=== PATIENT | female | born 1985 | race Caucasian/White ===

== ENCOUNTER 2019-12-08 05:25 | Inpatient (IN) | payer MEDICAID ==
[2019-12-07 14:05] LABS: BASOPHILS % (AUTO) 0.2 % (0.0-2.0); EOSINOPHILS # (AUTO) 0.1 K/uL (0-0.4); EOSINOPHILS % (AUTO) 0.7 % (0.0-4.0); HEMATOCRIT 38.4 % (36-48); HEMOGLOBIN 12.5 g/dL (12.0-16.0); LYMPHOCYTES # (AUTO) 1.8 K/uL (2.5-16.5); LYMPHOCYTES % (AUTO) 17.4 % (20.5-51.1); MEAN CORPUSCULAR HEMOGLOBIN 28 pg (27-31); MEAN CORPUSCULAR HGB CONC 33 g/dL (33-37); MEAN CORPUSCULAR VOLUME 85.3 fL (80-94); MONOCYTES # (AUTO) 0.9 K/uL (0.8-1.0); MONOCYTES % (AUTO) 8.4 % (1.7-9.3); NEUTROPHILS # (AUTO) 7.6 K/uL (1.8-7.7); NEUTROPHILS % (AUTO) 73.3 % (42.2-75.2); PLATELET COUNT (AUTO) 186 K/uL (140-450); RED CELL DISTRIBUTION WIDTH 15.7 % (11.6-13.7); WHITE BLOOD COUNT (AUTO) 10.4 K/uL (4.8-10.8)
[~2019-12-08] VITALS: Ht 167.6 cm; Wt 90.7 kg
[2019-12-08] MEDS ORDERED: PREN-380 PO (05:58)
[2019-12-08] MEDS ORDERED: LACTATED RINGERS 1,000 ML IV SCH (05:58)
[2019-12-08] MEDS ORDERED: CITRIC ACID/SODIUM CITRATE 30 ML UDC PO ONE (06:00)
[2019-12-08] MEDS ORDERED: ceFAZolin 1,000 MG VIAL ONE (06:47)
[2019-12-08 07:07] LABS: HEPATITIS B SURFACE ANTIGEN Negative (Negative)
[2019-12-08] MEDS ORDERED: MORPHINE SULFATE 2 MG/ML SYR ONE (07:15)
[2019-12-08] MEDS ORDERED: OXYTOCIN 10 UNITS/ML VIAL ONE (07:51)
[2019-12-08] MEDS ORDERED: NALOXONE 0.4 MG/ML VIAL IVP PRN ×3 (08:05)
[2019-12-08] MEDS ORDERED: diphenhydrAMINE 50 MG/ML VIAL IVP PRN ×2 (08:05)
[2019-12-08] MEDS ORDERED: ONDANSETRON 4 MG/2 ML VIAL IVP PRN ×2 (08:05)
[2019-12-08] MEDS ORDERED: NALBUPHINE 10 MG/ML AMP IVP PRN (08:05)
[2019-12-08] MEDS ORDERED: HYDROmorphone 1 MG/ML AMP IVP PRN (08:05)
[2019-12-08] MEDS ORDERED: MEPERIDINE 25 MG/ML SYR IVP PRN (08:05)
[2019-12-08] MEDS ORDERED: OXYTOCIN 20 UNITS/LR PREMIX 1,000 ML IV ONE (08:09)
[2019-12-08] MEDS ORDERED: diphenhydrAMINE 50 MG/ML VIAL ONE (08:09)
[2019-12-08] MEDS ORDERED: OXYTOCIN 20 UNITS in DEXT 5% / LACT RING 1,000 ML IV SCH (08:17)
[2019-12-08] MEDS ORDERED: METHYLERGONOVINE 0.2 MG/ML AMP IM PRN (08:20)
[2019-12-08] MEDS ORDERED: oxyCODONE/APAP 5/325 MG 1 TAB TAB PO PRN (08:20)
[2019-12-08] MEDS ORDERED: TEMAZEPAM 15 MG CAP PO PRN (08:20)
--- NOTE | 2019-12-08 08:23 | NUR ---
PATIENT HAS BEEN SCREENED AND CATEGORIZED LOW NUTRITION RISK. PATIENT WILL BE SEEN WITHIN 7 DAYS OF ADMISSION. 12/14/[address]
[2019-12-08] MEDS: OXYTOCIN 20 UNITS in LACTATED RINGERS 1,000 ML IV SCH ×3 (08:47→18:12)
[2019-12-08 10:42] LABS: APPEARANCE,URINE CLOUDY (CLEAR); BILIRUBIN,URINE NEGATIVE (NEGATIVE); BLOOD, URINE NEGATIVE (NEGATIVE); COLOR,URINE YELLOW (YELLOW); LEUKOCYTE ESTERASE ,URINE 3+ (NEGATIVE); NITRITE, URINE POSITIVE (NEGATIVE); UGLUCOSE NEGATIVE (NEGATIVE)
[2019-12-08 10:56] LABS: RBC,URINE 0-5 /HPF (0-5)
[2019-12-08 10:57] LABS: YEAST,URINE Few /HPF (None Seen)
[2019-12-08] MEDS: KETOROLAC 30 MG/ML VIAL IM/IVP SCH ×2 (12:11→18:11)
[2019-12-08] MEDS: DOCUSATE SOD/SENNA 50/8.6 MG 1 TAB PO SCH (21:00)
[2019-12-08] MEDS: SENNA 8.6 MG TAB PO SCH (21:00)
[2019-12-09] MEDS: KETOROLAC 30 MG/ML VIAL IM/IVP SCH (00:15)
[2019-12-09] MEDS ORDERED: OXYTOCIN 20 UNITS/LR PREMIX 1,000 ML IV ONE (01:12)
[2019-12-09] MEDS: OXYTOCIN 20 UNITS in LACTATED RINGERS 1,000 ML IV SCH (02:05)
[2019-12-09 06:06] LABS: BASOPHILS % (AUTO) 0.2 % (0.0-2.0); EOSINOPHILS # (AUTO) 0.1 K/uL (0-0.4); EOSINOPHILS % (AUTO) 0.6 % (0.0-4.0); HEMATOCRIT 31.9 % (36-48); HEMOGLOBIN 10.3 g/dL (12.0-16.0); LYMPHOCYTES # (AUTO) 1.6 K/uL (2.5-16.5); LYMPHOCYTES % (AUTO) 13.1 % (20.5-51.1); MEAN CORPUSCULAR HEMOGLOBIN 28 pg (27-31); MEAN CORPUSCULAR HGB CONC 32 g/dL (33-37); MEAN CORPUSCULAR VOLUME 85.7 fL (80-94); MONOCYTES # (AUTO) 0.9 K/uL (0.8-1.0); MONOCYTES % (AUTO) 7.2 % (1.7-9.3); NEUTROPHILS # (AUTO) 9.5 K/uL (1.8-7.7); NEUTROPHILS % (AUTO) 78.9 % (42.2-75.2); PLATELET COUNT (AUTO) 163 K/uL (140-450); RED BLOOD CELL COUNT(AUTO) 3.72 MIL/uL (4.20-5.40); RED CELL DISTRIBUTION WIDTH 15.7 % (11.6-13.7); WHITE BLOOD COUNT (AUTO) 12.1 K/uL (4.8-10.8)
[2019-12-09] MEDS: HYDROcodone/APAP 5/325 MG 1 TAB TAB PO PRN ×2 (09:50→17:17)
[2019-12-09] MEDS: SIMETHICONE 80 MG TAB.CHEW PO PRN (16:12)
[2019-12-09] MEDS: IBUPROFEN 800 MG TAB PO PRN (21:15)
[2019-12-09] MEDS: DOCUSATE SOD/SENNA 50/8.6 MG 1 TAB PO SCH (21:16)
[2019-12-09] MEDS: SENNA 8.6 MG TAB PO SCH (21:17)
[2019-12-10] MEDS: IBUPROFEN 800 MG TAB PO PRN (09:22)
[2019-12-10] MEDS: SIMETHICONE 80 MG TAB.CHEW PO PRN (09:22)
[2019-12-10] MEDS: HYDROcodone/APAP 5/325 MG 1 TAB TAB PO PRN ×2 (12:15→20:12)
[2019-12-11] MEDS: HYDROcodone/APAP 5/325 MG 1 TAB TAB PO PRN (03:30)
[2019-12-11] MEDS ORDERED: CAMERA MC ONE (04:03)
== END 2019-12-11 10:40 | disposition home or self-care (01) | DRG 540 ==
LOC: MLD 05:25 → MFCC 08:53
PROVIDERS: ADMIT Obstetrics & Gynecology; ATTEND Obstetrics & Gynecology
PROC: 10D00Z1 Extraction of Products of Conception, Low, Open Approach (ICD-10-PCS; principal; 2019-12-08 07:30)
DX: O34.211 Maternal care for low transverse scar from previous cesarean delivery (principal); O99.824 Streptococcus B carrier state complicating childbirth; Z37.0 Single live birth; Z3A.39 39 weeks gestation of pregnancy
CPT/HCPCS: 36415; 81001; 85025; 86592; 86702; 86762; 86886; 86900; 86901; 87081; 87086; 87186; 87340; J0690; J1200; J1885; J2270; J2405; J2590; J7060; J7120